=== PATIENT | female | born 1975 | race Caucasian/White ===

== ENCOUNTER 2022-04-16 22:56 | Emergency (ER) | payer OTHER ==
[~2022-04-16 22:56] MED LIST: BENTYL 20MG TAB20 MG PO; LODINE CAP 300300 MG PO; PHENERGAN 12.12.5 MG PR; ZOFRAN ODT 4 MG4 MG PO
[2022-04-17 02:57] LABS: HEMOGLOBIN 13.1 gm/dl (12.3-15.3); RED BLOOD COUNT 4.57 M/UL (4.00-5.10); WHITE BLOOD COUNT 10.1 K/UL (4.5-11.0)
[2022-04-17 03:27] LABS: BUN/CREATININE RATIO 14 (0-10)
[2022-04-17] MEDS ORDERED: NORVASC5 MG PO (04:31)
== END 2022-04-17 06:05 | disposition home or self-care (01) ==
LOC: ER1 22:56
PROVIDERS: Emergency Medicine
DX: I10 Essential (primary) hypertension (principal)
CPT/HCPCS: 71045; 80053; 82550; 82553; 83880; 84484; 85025; 93005; 99284

== ENCOUNTER → 2022-05-24 | Outpatient (CLI) | payer OTHER ==
[~2022-05-24] MED LIST changes: +NORVASC5 MG PO
== END ==
LOC: US 05-19 08:30
DX: I10 Essential (primary) hypertension (principal)
CPT/HCPCS: 93975